=== PATIENT | female | born 1950 | race Caucasian/White ===

== ENCOUNTER → 2016-02-23 | Outpatient (CLI) | payer MEDICARE, OTHER ==
[~2016-02-23] MED LIST: CIPRO500 MG PO; CLONAZEPAM2 MG PO; MECLIZINE HCL12.5 M1 PO; SYNTHROID150 MCG PO; TRIAMTERENE-HC1 EACH PO; ZOLOFT50 MG PO
== END | disposition home or self-care (01) ==
LOC: CDC 14:50
DX: Z01.810 Encounter for preprocedural cardiovascular examination (principal); M65.342 Trigger finger, left ring finger; M65.352 Trigger finger, left little finger; M79.642 Pain in left hand; Z88.1 Allergy status to other antibiotic agents
CPT/HCPCS: 93000